=== PATIENT | male | born 1970 | race Caucasian/White ===

== ENCOUNTER 2022-05-13 21:26 | Emergency (ER) | payer OTHER ==
[~2022-05-13 21:26] MED LIST: IBUPROFEN600 MG PO; NORFLEX 100 MG100 MG PO; PREDNISONE 50 M50 MG PO
[2022-05-13 21:56] LABS: HEMOGLOBIN 14.8 gm/dl (14.0-17.5); RED BLOOD COUNT 4.97 M/UL (4.20-5.50); WHITE BLOOD COUNT 11.9 K/UL (4.5-11.0)
[2022-05-13 22:29] LABS: BUN/CREATININE RATIO 10 (0-10)
[2022-05-14] MEDS ORDERED: OMEPRAZOLE20 M1 PO (01:22)
== END 2022-05-14 01:31 | disposition home or self-care (01) ==
LOC: ER1 21:26
PROVIDERS: Physician Assistant Medical
DX: R07.2 Precordial pain (principal); R10.9 Unspecified abdominal pain; E78.5 Hyperlipidemia, unspecified; K21.9 Gastro-esophageal reflux disease without esophagitis; I10 Essential (primary) hypertension; G62.9 Polyneuropathy, unspecified; Z88.2 Allergy status to sulfonamides; F17.220 Nicotine dependence, chewing tobacco, uncomplicated
CPT/HCPCS: 71045; 80053; 81001; 82550; 82553; 83690; 84484; 85025; 93005; 96374; 99285; C9113; Q9967

== ENCOUNTER 2022-07-06 16:24 | Emergency (ER) | payer OTHER ==
[~2022-07-06 16:24] MED LIST changes: +OMEPRAZOLE20 M1 PO
[2022-07-06 19:18] LABS: HEMOGLOBIN 14.4 gm/dl (14.0-17.5); RED BLOOD COUNT 4.78 M/UL (4.20-5.50); WHITE BLOOD COUNT 13.2 K/UL (4.5-11.0)
[2022-07-06 19:20] LABS: BUN/CREATININE RATIO 13 (0-10)
== END 2022-07-06 22:26 | disposition home or self-care (01) ==
LOC: ER1 16:24
PROVIDERS: Physician Assistant
DX: R53.83 Other fatigue (principal); M79.10 Myalgia, unspecified site; Z20.822 Contact with and (suspected) exposure to COVID-19; Z88.2 Allergy status to sulfonamides
CPT/HCPCS: 71045; 80053; 81001; 85025; 85652; 86140; 87086; 96374; 96375; 99283; J1200; J2930; U0002